=== PATIENT | male | born 1950 | race Caucasian/White ===

== ENCOUNTER 2022-10-15 02:13 | Outpatient (CLI) | payer BC, MEDICARE, SELFPAY ==
[2022-10-15 16:22] LABS: ALT 27 U/L (16-63); AST 19 U/L (15-37); Albumin 3.5 g/dL (3.4-5.0); Alkaline Phosphatase 60 U/L (46-116); Bilirubin, Direct 0.2 mg/dL (0.0-0.2); Bilirubin, Total 0.6 mg/dL (0.2-1.0)
== END 2022-10-15 02:14 | disposition home or self-care (01) ==
LOC: LBO 02:13
PROVIDERS: PCP Family Medicine; Referring Provider Family Medicine; Visit Provider Family Medicine
DX: I10 Essential (primary) hypertension (principal); B35.1 Tinea unguium; Z79.899 Other long term (current) drug therapy
CPT/HCPCS: 36415; 80076

== ENCOUNTER 2023-08-18 09:56 | Outpatient (CLI) | payer BC, MEDICARE, SELFPAY ==
[2023-08-18 10:51] LABS: BUN 13 mg/dL (7-18); CREATININE 0.9 mg/dL (0.70-1.30); Calcium 9.3 mg/dL (8.5-10.1); Chloride 105 mmol/L (98-107); Estimated GFR 89.62 (mL/min/1.73m2); Glucose 102 mg/dL (74-106); Potassium 4.7 mmol/L (3.5-5.1); Sodium 143 mmol/L (136-145)
== END 2023-08-18 09:57 | disposition home or self-care (01) ==
LOC: LBO 09:57
PROVIDERS: PCP Family Medicine; Visit Provider Internal Medicine Cardiovascular Disease
DX: I48.0 Paroxysmal atrial fibrillation (principal)
CPT/HCPCS: 36415; 80048

== ENCOUNTER 2024-03-15 02:23 | Outpatient (CLI) | payer BC, MEDICARE, SELFPAY ==
--- NOTE | 2024-03-15 13:30 | DI.RAD_ITS ---
Exam(s) XR SHOULDER RT COMPLETE 2+V EXAM: XR SHOULDER RT COMPLETE 2+V CLINICAL HISTORY: Two falls, r/o malunion, rt shoulder injury, S49.91XA. TECHNIQUE: 2D digital imaging was performed. Five views. COMPARISON: No exams were available for comparison FINDINGS: BONES: No acute fracture is present. No bony destructive lesion is seen. JOINTS: No dislocation present. Mild degenerative changes of the AC joint and glenohumeral joint. C hondrocalcinosis. SOFT TISSUE: Normal. IMPRESSION: Mild degenerative changes. No acute abnormality. DATA REPOSITORY: RADIATION DOSE DELIVERED:
--- NOTE | 2024-03-15 15:45 | DI.RAD_ITS ---
Exam(s) XR KNEE RT 4V+ XR TIB/FIB RT EXAM: XR TIB/FIB RT CLINICAL HISTORY: Fall, W19.XXXA, R/O fracture. TECHNIQUE: 2D digital imaging was performed. Two views. COMPARISON: CR XR KNEE RT 4V+ from 03/15/2024 FINDINGS: BONES: No acute fracture is present. No bony destructive lesion is seen. Joints: Severe narrowing of the medial femoral tibial joint space. Chondrocalcinosis. Patellofemora l joint space is maintained. SOFT TISSUE: Swelling around the ankle. IMPRESSION: No evidence of fracture. Advanced degenerative changes of the medial femoral tibial joint. Soft tis lelia swelling greater around the ankle. DATA REPOSITORY: RADIATION DOSE DELIVERED:
== END 2024-03-15 02:43 ==
LOC: DI 02:31
PROVIDERS: PCP Family Medicine; Visit Provider Family Medicine
DX: W19.XXXA Unspecified fall, initial encounter (principal); S49.91XA Unspecified injury of right shoulder and upper arm, initial encounter; X58.XXXA Exposure to other specified factors, initial encounter
CPT/HCPCS: 73030; 73564; 73590

== ENCOUNTER 2024-05-02 02:46 | Outpatient (CLI) | payer BC, MEDICARE, SELFPAY ==
--- NOTE | 2024-05-02 14:04 | DI.RAD_ITS ---
Exam(s) XR CHEST 2V PA LATERAL EXAM: XR CHEST 2V PA LATERAL CLINICAL HISTORY: Exposed to influenza, L sided rhonchi,J10.1 TECHNIQUE: 2D digital imaging was performed of the chest. Two images were obtained. PA and lateral views were obtained. COMPARISON: No exams were available for comparison FINDINGS: MEDIASTINUM: Normal. HEART: Mild cardiomegaly. PULMONARY VASCULATURE: There is tortuosity of the thoracic aorta. LUNGS: No focal consolidating infiltrates. PLEURAL SPACE: No pleural effusion or pneumothorax. BONE:Within normal limits for the patient's age. OTHER FINDINGS:Normal. IMPRESSION: No acute pulmonary findings. DATA REPOSITORY: RADIATION DOSE DELIVERED:
== END 2024-05-02 03:06 ==
LOC: DI 02:46
PROVIDERS: PCP Family Medicine; Visit Provider Family Medicine
DX: J10.1 Influenza due to other identified influenza virus with other respiratory manifestations (principal)
CPT/HCPCS: 71046

== ENCOUNTER 2024-09-07 00:36 | Outpatient (CLI) | payer OTHER, SELFPAY ==
--- NOTE | 2024-09-07 07:15 | DI.MRI_ITS ---
Exam(s) MR UPPER JOINT RT WO EXAM: MR UPPER JOINT RT WO CLINICAL HISTORY: R SHOULDER PAIN,rt rotator cuff tear,m75.101 TECHNIQUE: Multiplanar multisequence MRI of the shoulder was performed. COMPARISON: CR XR SHOULDER RT COMPLETE 2+V from 03/15/2024 CR XR CHEST 2V PA LATERAL from 05/02/2024 FINDINGS: MARROW:There is no evidence of fracture, Hill-Sachs deformity, nor ominous osseous lesions. GLENOHUMERAL JOINT: Mild degenerative changes. There is some thinning of the articular cartilage. T here are no degenerative subarticular cysts. No osteophytes. There is a moderate size glenohumeral joint effusion. Mild synovial thickening anteriorly. There are no obvious loose intra-articular bod ies evident. ROTATOR CUFF MECHANISM: AC JOINT/ACROMIUM: There are mild-moderate degenerative changes in the AC joint.. There is no evidence of os acromiale. Supraspinatus: There is tendinitis signal. However, there is also a full-thickness tear of the supra spinatus at its foot pad insertion site upon the greater tuberosity. There does not appear to be sig nificant amount of fluid in the subacromial-subdeltoid bursa. This may represent a large partial-thi ckness tear of the most anterior aspect of the supraspinatus insertion tended. Infraspinatus: Intact. No evidence of tear nor muscle atrophy. There are few small degenerative sub articular cysts in the posterolateral aspect of the humeral head subjacent to the infraspinatus inser tion.. There is no muscle atrophy. Teres Minor: Intact. No evidence of tear nor muscle atrophy. Subscapularis/anterior cuff: Mild tendinitis signal at the insertional aspect anterior to the lesser tuberosity. No high-grade tear. No muscle atrophy. BICEPS TENDON: Exhibits normal position within the intertubercular groove. There is fluid in the ten don sheath within the intertubercular groove, this in continuity with the glenohumeral joint effusion . There is some signal abnormality within the intra-articular aspect of the biceps tendon but withou t high-grade tear. LABRUM: There is some mild signal abnormality in the superior labrum posterior to the biceps insertio n. There is also some surface irregularity of the posterior labrum. Some tearing of the anterior la khadra also noted. Inferior labrum appears intact as does the inferior glenohumeral ligament. Some fl uid is noted with in the inferior recess but no loose bodies. QUADRILATERAL SPACE: No evidence of mass in the region of the axillary nerve and dorsal circumflex hu meral vessels. Visualized triceps muscle at this level appears unremarkable. IMPRESSION: 1. Moderate size glenohumeral joint. Some synovial thickening but no loose intra-articular bodies. Mild degenerative changes the glenohumeral joint. 2. Full-thickness tear versus large partial-thickness tear at the foot pad insertion of the supraspin atus at the greater tuberosity level. 3. Some tendinitis signal is also noted in the insertional aspect of the anterior cuff-subscapularis anterior to the lesser tuberosity. There does not appear to be a high-grade tear. No muscle atrophy . 4. There is signal abnormality within the intra-articular course of the biceps tendon but no full-th ickness tear. There is fluid in its tendon sheath within the intertubercular groove which is in cont inuity with the glenohumeral joint effusion. There are no loose bodies within its tendon sheath. 5. There is mild tearing of the labrum anteriorly and posteriorly. There is no evidence of paralabr al cyst. DATA REPOSITORY:
== END 2024-09-07 00:56 ==
LOC: DI 00:36
PROVIDERS: PCP Family Medicine; Visit Provider Student in an Organized Health Care Education/Training Program
DX: M75.121 Complete rotator cuff tear or rupture of right shoulder, not specified as traumatic (principal)
CPT/HCPCS: 73221